=== PATIENT | male | born 1985 | race Caucasian/White ===

== ENCOUNTER 2018-05-11 22:38 | Emergency (ER) | payer OTHER ==
[2018-05-11] MEDS ORDERED: DIPHTH/TETANUS/ACEL. PERTUSSIS IM ONE (22:40)
[2018-05-11] MEDS ORDERED: NS 0.9% ONE (23:10)
[2018-05-11] MEDS ORDERED: IOPAMIDOL 76% 75 ML INFUS BTL 75 ML ONE (23:10)
[2018-05-11 23:18] LABS: PLATELET COUNT, AUTOMATED 209 K/uL (150-450)
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
[2018-05-11 23:26] LABS: INR 1.11
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
[2018-05-12] MEDS ORDERED: NS(*) 0.9% 500 ML BAG 500 ML ONE (00:02)
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
[2018-05-12 00:15] VITALS: BP 95/58
--- NOTE | 2018-05-12 00:38 | EKG ---
FACILITY: [facility] PATIENT NAME: URI ZAMBRANOXVIII : [id number] MR: [id number] V: [id number] EXAM DATE: ORDERING PHYSICIAN: LAW HOLLAND TECHNOLOGIST: Test Reason : Blood Pressure : / mmHG Vent. Rate : 085 BPM Atrial Rate : 085 BPM P-R Int : 172 ms QRS Dur : 098 ms QT Int : 378 ms P-R-T Axes : 061 080 -15 degrees QTc Int : 449 ms Normal sinus rhythm T inversion consistent with inferior ischemia No previous ECGs available Confirmed by MIRIAM VAUGHN ([id number]) on 05/12/2018 6:52:55 AM Referred By: Confirmed By:MIRIAM VAUGHN
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
[2018-05-12] MEDS ORDERED: PROPOFOL(*)1000 MG/100 ML VIAL 100 ML ONE (03:45)
[2018-05-12] MEDS ORDERED: MIDAZOLAM 2 MG/2 ML VIAL ONE (03:47)
[2018-05-12] MEDS ORDERED: PROPOFOL EMUL(*) 10MG/ML 20 ML 20 ML ONE (03:48)
[2018-05-12] MEDS ORDERED: SUCCINYLCHOL CHL 200MG/10ML VL ONE (03:49)
[2018-05-12] MEDS ORDERED: ROCURONIUM BROM 10 MG/ML 10 ML ONE (03:49)
== END 2018-05-12 00:20 | disposition short-term general hospital (02) ==
LOC: ER 23:20
DX: S09.8XXA Other specified injuries of head, initial encounter (principal); S02.92XB Unspecified fracture of facial bones, initial encounter for open fracture; S02.0XXB Fracture of vault of skull, initial encounter for open fracture; S00.03XA Contusion of scalp, initial encounter; V29.9XXA Motorcycle rider (driver) (passenger) injured in unspecified traffic accident, initial encounter
CPT/HCPCS: 31500; 36415; 70450; 70486; 70498; 71045; 71260; 72170; 74177; 80305; 80320; 81001; 82150; 83605; 83690; 85025; 85610; 85730; 86850; 86900; 86901; 86920; 90471; 90715; 93005; 94002; 99291; 99292; J7040; P9016; Q9967; 82040; 82247; 82310; 82374; 82435; 82565; 82947; 84075; 84132; 84155; 84295; 84450; 84460; 84520

== ENCOUNTER → 2018-05-11 | Outpatient (REF) | LOC: AMB 23:18 | PROVIDERS: ATTEND Nurse Practitioner | DX: Z02.9 Encounter for administrative examinations, unspecified (principal) ==

== ENCOUNTER → 2018-05-11 | Outpatient (CLI) | payer OTHER | LOC: AMB 22:22 | PROVIDERS: ATTEND Nurse Practitioner | DX: S09.93XA Unspecified injury of face, initial encounter (principal); V29.9XXA Motorcycle rider (driver) (passenger) injured in unspecified traffic accident, initial encounter | CPT/HCPCS: A0425; A0427 ==

== ENCOUNTER → 2018-07-08 | Outpatient (CLI) | payer OTHER ==
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
== END ==
LOC: MRI 06:54
PROVIDERS: ATTEND Nurse Practitioner Acute Care
DX: M54.2 Cervicalgia (principal); S06.9X9A Unspecified intracranial injury with loss of consciousness of unspecified duration, initial encounter; S22.009A Unspecified fracture of unspecified thoracic vertebra, initial encounter for closed fracture
CPT/HCPCS: 70250; 72141

== ENCOUNTER → 2018-08-11 | Outpatient (CLI) | payer OTHER ==
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
== END ==
LOC: CT 07:01
PROVIDERS: ATTEND Otolaryngology
DX: J32.8 Other chronic sinusitis (principal); J34.2 Deviated nasal septum; S02.92XD Unspecified fracture of facial bones, subsequent encounter for fracture with routine healing
CPT/HCPCS: 70486